=== PATIENT | female | born 1985 | race Caucasian/White ===

== ENCOUNTER 2021-06-14 17:35 | Emergency (ER) | payer OTHER, SELFPAY ==
[2021-06-14 17:52] VITALS: BP 136/69; PULSE 81; RESP 16; TEMP 36.8; O2SAT 100
--- NOTE | 2021-06-14 19:13 | ED.EAR ---
HPI - Ear Problem General Chief complaint: Ear Stated complaint: Ear Pain Time Seen by Provider: 06/14/21 19:14 Source: patient, RN notes reviewed and old records reviewed Mode of arrival: ambulatory Limitations: no limitations History of Present Illness HPI Narrative: 35 year old female who presents to [facility] with complaints of left ear pain since this morning. Patient denies any known fevers, chills or sweats, denies any sore throat, cough or any sinus congestion or drainage. Patient reports that she has had COVID vaccinations and flu shot. Patient has not taken any OTC medications. MD Complaint: ear pain Location: left ear Treatment prior to arrival: none Related Data Allergies Allergy/AdvReac Type Severity Reaction Status Date / Time No Known Allergies Allergy Verified 06/14/21 18:15 Review of Systems Review of Systems: CONSTITUTIONAL: Denies fever, chills, or sweats. EYES: Denies visual changes, redness, or discharge. ENT: Denies rhinorrhea, congestion, sore throat, left otalgia. CARDIOVASCULAR: Denies chest pain, palpitations, or edema. RESPIRATORY: Denies cough or dyspnea. GASTROINTESTINAL: Denies abdominal pain, nausea, vomiting, or diarrhea. GENITOURINARY: Denies dysuria or hematuria. SKIN: Denies rash or itching. MUSCULOSKELETAL: Denies back pain, joint pain, or myalgia. NEUROLOGIC: Denies headache, numbness, or weakness. PSYCHIATRIC: Denies anxiety or depression. All systems reviewed & are unremarkable except as noted in HPI and below PMFSH Past Medical History Medical History (Updated 06/15/21 @ 11:06 by Karo López NP) No significant past medical history Surgical History Surgical History (Updated 06/15/21 @ 11:01 by Karo López NP) H/O elbow surgery bone chip removed right elbow H/O tubal ligation Hx of cholecystectomy Family History Family History (Updated 06/14/21 @ 19:40 by Karo López NP) Grandparent Lung cancer Diabetes mellitus History of blood clots Father Hypertension Mother Hypertension Social History Social History (Updated 06/14/21 @ 19:38 by Krao López NP) Smoking status: Never smoker Alcohol intake: never Substance use: never Gender identity (if verbalized by the patient): Female Comments At time of signature, agree with nursing past medical, surgical, social and family history. There is no relevant family history pertinent to the presenting complaint Exam Narrative: GENERAL: Well-appearing, well-nourished, and in no acute distress. HEAD: Normocephalic, atraumatic. EYES: PERRLA and EOMI. ENT: Nares clear, no rhinorrhea or epistaxis. Mucous membranes moist.Right TM normal with good light reflex, Left TM normal with canal red and excoriated no drainage noted.Throat pink with no lesions or exudates or tonsil enlargement. NECK: Supple.no lymphadenopathy CHEST: Clear to auscultation. No respiratory distress.SAO2 100% on room air HEART: Regular rate and rhythm. No murmur heard. Normal peripheral pulses. ABDOMEN: Soft, nontender, nondistended, normal active bowel sounds. EXTREMITIES: Normal range of motion. No edema. SKIN: Warm, dry, no rash. NEURO: No focal deficits. Alert and oriented x3. Course Course Level of Care: Express Care Visit Vital Signs Vital signs: Vital Signs Temperature 36.8 C 06/14/21 17:52 Pulse Rate 81 06/14/21 17:52 Respiratory Rate 16 06/14/21 17:52 Blood Pressure 136/69 06/14/21 17:52 Pulse Oximetry 100 06/14/21 17:52 Temperature 36.8 C 06/14/21 17:52 Pulse Rate 81 06/14/21 17:52 Respiratory Rate 16 06/14/21 17:52 Blood Pressure 136/69 06/14/21 17:52 Pulse Oximetry 100 06/14/21 17:52 Medical Decision Making Differential Diagnosis Differential Diagnosis: otitis media, otitis externa, eustachian tube dysfunction URI. Medical Records Medical records reviewed: Yes I reviewed the external patient's medical records. Vital Signs Vital Signs: Vital Signs Temper
--- NOTE | 2021-06-14 19:30 | ED.EAR ---
HPI - Ear Problem General Chief complaint: Ear Stated complaint: Ear Pain Time Seen by Provider: 06/14/21 19:14 Source: patient, RN notes reviewed and old records reviewed Mode of arrival: ambulatory Limitations: no limitations History of Present Illness HPI Narrative: 35-year-old female who presents to [facility] with complaints of left ear pain since this morning. Patient denies any cough or any sore throat with no nasal drainage. Patient states she has not taken any [id number] medication for her symptoms. Patient states no chills or sweats,Patient reports she has had Covid and flu vaccines MD Complaint: ear pain Location: left ear Related Data Allergies Allergy/AdvReac Type Severity Reaction Status Date / Time No Known Allergies Allergy Verified 06/14/21 18:15 Review of Systems Review of Systems: CONSTITUTIONAL: Denies fever, chills, or sweats. EYES: Denies visual changes, redness, or discharge. ENT: Denies rhinorrhea, congestion, sore throat, left otalgia. CARDIOVASCULAR: Denies chest pain, palpitations, or edema. RESPIRATORY: Denies cough or dyspnea. GASTROINTESTINAL: Denies abdominal pain, nausea, vomiting, or diarrhea. GENITOURINARY: Denies dysuria or hematuria. SKIN: Denies rash or itching. MUSCULOSKELETAL: Denies back pain, joint pain, or myalgia. NEUROLOGIC: Denies headache, numbness, or weakness. PSYCHIATRIC: Denies anxiety or depression. All systems reviewed & are unremarkable except as noted in HPI and below PMFSH Surgical History Surgical History (Updated 06/14/21 @ 19:38 by Karo López NP) H/O tubal ligation Hx of cholecystectomy Family History Family History (Updated 06/14/21 @ 19:40 by Karo López NP) Grandparent Lung cancer Diabetes mellitus History of blood clots Father Hypertension Mother Hypertension Social History Social History (Updated 06/14/21 @ 19:38 by Karo López NP) Smoking status: Never smoker Alcohol intake: never Substance use: never Living arrangements: with family Gender identity (if verbalized by the patient): Female Comments At time of signature, agree with nursing past medical, surgical, social and family history. There is no relevant family history pertinent to the presenting complaint Exam Narrative: GENERAL: Well-appearing, well-nourished, and in no acute distress. HEAD: Normocephalic, atraumatic. EYES: PERRLA and EOMI. ENT: Nares clear, no rhinorrhea or epistaxis. Mucous membranes moist. NECK: Supple. CHEST: Clear to auscultation. No respiratory distress. HEART: Regular rate and rhythm. No murmur heard. Normal peripheral pulses. ABDOMEN: Soft, nontender, nondistended, normal active bowel sounds. EXTREMITIES: Normal range of motion. No edema. SKIN: Warm, dry, no rash. NEURO: No focal deficits. Alert and oriented x3. Course Course Level of Care: Express Care Visit Vital Signs Vital signs: Vital Signs Temperature 36.8 C 06/14/21 17:52 Pulse Rate 81 06/14/21 17:52 Respiratory Rate 16 06/14/21 17:52 Blood Pressure 136/69 06/14/21 17:52 Pulse Oximetry 100 06/14/21 17:52 Temperature 36.8 C 06/14/21 17:52 Pulse Rate 81 06/14/21 17:52 Respiratory Rate 16 06/14/21 17:52 Blood Pressure 136/69 06/14/21 17:52 Pulse Oximetry 100 06/14/21 17:52 Medical Decision Making Medical Records Medical records reviewed: Yes I reviewed the external patient's medical records. Vital Signs Vital Signs: Vital Signs Temperature 36.8 C 06/14/21 17:52 Pulse Rate 81 06/14/21 17:52 Respiratory Rate 16 06/14/21 17:52 Blood Pressure 136/69 06/14/21 17:52 Pulse Oximetry 100 06/14/21 17:52 Temperature 36.8 C 06/14/21 17:52 Pulse Rate 81 06/14/21 17:52 Respiratory Rate 16 06/14/21 17:52 Blood Pressure 136/69 06/14/21 17:52 Pulse Oximetry 100 06/14/21 17:52 Critical Care Time Critical Care Time Critical Care Time: No Discharge Plan Discharge Clinical I
== END 2021-06-14 19:54 | disposition home or self-care (01) ==
PROVIDERS: Emergency Provider Registered Nurse
DX: H60.502 Unspecified acute noninfective otitis externa, left ear (principal)
CPT/HCPCS: 99213; G0463

== ENCOUNTER 2025-06-06 09:21 | Emergency (ER) | payer SELFPAY ==
[2025-06-06 09:30] VITALS: BP 145/92; PULSE 104; RESP 16; TEMP 36.3; O2SAT 100
--- NOTE | 2025-06-06 09:38 | ED_ITS ---
HPI - URI/Sore Throat General Chief Complaint: Ear Stated Complaint: left ear pain Time Seen by Provider: 06/06/25 09:35 Source: patient Mode of arrival: ambulatory Limitations: no limitations History of Present Illness HPI Narrative: Holli is a 39-year-old female patient presenting to the clinic today with complaints of left ear pain that just started this morning. She reports over the last week and a half she has had cough and cold symptoms. Denies any fevers, chills, body aches. Is blowing out clear nasal drainage. Cough is nonproductive. Denies any sinus pressure. Related Data Allergies Allergy/AdvReac Type Severity Reaction Status Date / Time No Known Allergies Allergy Verified 06/06/25 09:38 Review of Systems Review of Systems: Pertinent positives per HPI. Patient denies any fever, chills, rash, headache, visual changes, dizziness, shortness of breath, chest pain, palpitations, nausea, vomiting, diarrhea, constipation, abdominal pain, or any urinary issues. [facility] Past Medical History Medical History (Updated 06/06/25 @ 09:41 by Manav Murray APRN) No significant past medical history Surgical History Surgical History H/O elbow surgery bone chip removed right elbow H/O tubal ligation Hx of cholecystectomy Family History Family History Grandparent Lung cancer Diabetes mellitus History of blood clots Father Hypertension Mother Hypertension Social History Social History Smoking status: Never smoker Alcohol intake: never Substance use: never Living arrangements: with family Gender identity (if verbalized by the patient): Female Comments At the time of my signature, I reviewed and agree with the nursing past medical, surgical, social, and family history. There is no relevant family history pertinent to the patient complaint. Exam Narrative: General: Well-developed, obese, in no apparent distress Head: Normocephalic, atraumatic Eyes: Pupils equally round and reactive to light bilaterally, EOM intact, sclera and conjunctive clear, no discharge, lids normal Ears: Right TMs intact and clear, left TM intact, bulging, red, ear canals clear, no drainage, grossly hearing normal. Nose: Nares patent, clear nasal discharge, mild inflammation, no sinus tenderness. Mouth: Oral pharynx without lesions or masses, good dentition, MMM. Neck: Supple, trachea midline, no enlargement of anterior or posterior cervical nodes, no thyroid masses or goiter palpable. Cardio: Regular rate and rhythm, s1 and s2 normal, no murmur appreciated. Resp: Clear to auscultation bilaterally, no rhonchi, rales, wheezing or rubs Course Course Level of Care: Express Care Visit Vital Signs Vital signs: Vital Signs Temperature 36.3 C L 06/06/25 09:30 Pulse Rate 104 H 06/06/25 09:30 Respiratory Rate 16 06/06/25 09:30 Blood Pressure 145/92 H 06/06/25 09:30 Pulse Oximetry 100 06/06/25 09:30 Oxygen Delivery Room Air 06/06/25 09:30 Temperature 36.3 C L 06/06/25 09:30 Pulse Rate 104 H 06/06/25 09:30 Respiratory Rate 16 06/06/25 09:30 Blood Pressure 145/92 H 06/06/25 09:30 Pulse Oximetry 100 06/06/25 09:30 Oxygen Delivery Room Air 06/06/25 09:30 MDM MDM Narrative Medical decision making narrative: At the time of visit patient is resting comfortably on the exam table. Patient appears to be nontoxic. Complaints of left ear pain that just started this morning. She reports over the last week and a half she has had cough and cold symptoms. Denies any fevers, chills, body aches. Is blowing out clear nasal drainage. Cough is nonproductive. Denies any sinus pressure. On exam patient has bilateral TMs intact, left TM bulging and red, right TM clear, clear nasal drainage, mild anterior turbinate inflammation, oral pharynx normal, heart rates regular rate and rhythm, lung sounds are clear. Plan: I suspect patient has left otitis media. Prescription for amoxicillin was sent to the pharmacy. Supportive measures were discussed with the patient and they voiced understanding discharge instructions and agrees to treatment plan. Return precautions reviewed Differential Diagnosis Differential Diagnosis: Differential diagnostic considerations for upper respiratory infection include upper respiratory infection, croup, otitis media, sinusitis, viral infection, bronchitis, influenza, pharyngitis, strep, uvulitis. Discharge Plan Discharge Clinical Impression: Otitis media Qualifiers: Otitis media type: suppurative Chronicity: acute Laterality: left Recurrence: non-recurrent Spontaneous tympanic membrane rupture: without spontaneous rupture Qualified Code(s): H66.002 - Acute suppurative otitis media without spontaneous rupture of ear drum, left ear Patient Disposition: Home Condition: Stable Instructions: Antibiotic Form, Ear Infection (ED) Additional Instructions: Take prescription medications only as prescribed-amoxicillin Increase fluids and stay well hydrated May take Tylenol or motrin as directed on bottle for pain/fever May use Flonase 1 spray in each nare daily May take OTC antihistamines such as Zyrtec or Claritin daily as directed on bottle May apply Vicks vapor rub to chest to open sinuses Sinus rinses for congestion Cepacol spray, cough drops, throat lozenges, warm tea with honey/lemon, gargle salt water to soothe throat BRAT diet for diarrhea Clear liquids x 24 hours then advance as tolerated for nausea/vomiting Go to the ED if you develop a worsening in your condition- high fever not controlled by Tylenol or Motrin, dehydration, weakness, lethargy, shortness of breath, or chest pain. Follow up with your PCP in 3-5 days if symptoms persist. Patient Language: Belarusian Prescriptions: New amoxicillin 875 mg tablet 875 mg PO Q12H 7 Days Qty: 14 0RF Follow-up/Referrals: Luis,MD Tad [Primary Care Provider] Time of Disposition: 09:45 Quality NIHSS Nursing Documentation ED NIHSS nursing documentation: reviewed/agree
== END 2025-06-06 09:50 | disposition home or self-care (01) ==
PROVIDERS: Emergency Provider Nurse Practitioner Family; PCP Internal Medicine
DX: H66.002 Acute suppurative otitis media without spontaneous rupture of ear drum, left ear (principal)
CPT/HCPCS: 99213; G0463